=== PATIENT | female | born 1970 | race Hispanic/Latino ===

== ENCOUNTER 2017-05-26 08:50 | Emergency (ER) | payer BC ==
[2017-05-26 09:07] VITALS: RESP 19
--- NOTE | 2017-05-26 09:35 | ED PDOC ---
HPI: CCC, URI, Sore Throat Chief Complaint (Provider): cough <Kael Lara III - Last Filed: 05/26/17 11:03> History Per: Patient History/Exam Limitations: no limitations Have you had recent travel within the past 21 days to any of the following countries: [place], [place], [place] or [place]?: No Onset/Duration Of Symptoms: Days Current Symptoms Are (Timing): Still Present Location Of Pain: denies: Ear(s), Throat, Diffuse Myalgias, Headache Sick Contacts (Context): None Associated Symptoms: Sore Throat, Cough, Nasal Congestion. denies: Fever, Chills, Sputum, Neck Pain, Sinus Drainage, Myalgias, Nausea, Vomiting, Diarrhea Ear Symptoms: Bilateral: None <Adam Yuen - Last Filed: 05/26/17 11:08> Time Seen by Provider: 05/26/17 09:28 Chief Complaint (Nursing): Cough, Cold, Congestion Additional Complaint(s): CC: cough HPI: 47 y/o woman w/ no pmh presents to ED with cough. The patient reports 2 months of non-productive, non-bloody cough. The patient had previously gone to an urgent care center 1 month ago and was prescribed a z-pack which she took without resolution. The patient also has been using albuterol inhalers Q4h without relief, last taken 2 days ago. The patient reports associated mild sinus pain, rhinorrhea, mild SOB, and chest congestion but denies fever, nausea , vomiting, diarrhea, dysuria, recent travel, or sick contacts. The patient denies any allergies, smoking, alcohol, and drug use. ROS: 12 points assessed and negative unless otherwise reported in HPI allergies: NKDA PMH: none PMD: none PSH: none SOC: denies smoking, alcohol, and drugs (Adam Yuen) Supervising Attending Note - Attestation: I have fully participated in the care of the patient.: Yes I have reviewed all pertinent clinical information, including history, physical exam and plan: Yes <Kael Lara III - Last Filed: 05/26/17 11:03> <Adam Yuen - Last Filed: 05/26/17 11:08> - Notes: Notes:: pt w chronic cough, hx URI and bronchitis in (Kael Lara III) Past Medical History <Kael Lara III - Last Filed: 05/26/17 11:03> Reviewed: Historical Data, Nursing Documentation, Vital Signs - Medical History PMH: No Chronic Diseases - Family History Family History: States: Unknown Family Hx <Adam Yuen - Last Filed: 05/26/17 11:08> Vital Signs: Last Vital Signs Temp 97.9 F 05/26/17 09:05 Pulse 72 05/26/17 09:05 Resp 19 05/26/17 09:05 BP 102/59 L 05/26/17 09:05 Pulse Ox 96 05/26/17 10:43 - Home Medications Home Medications: Ambulatory Orders Medication Instructions Recorded Albuterol HFA [Ventolin HFA 90 1 - 2 puff IH Q4 PRN #1 inhaler 05/26/17 mcg/actuation (8 g)] Benzonatate [Tessalon Perles] 100 mg PO TID PRN #20 sgl 05/26/17 Fexofenadine/Pseudoephedrine 1 each PO BID #20 tab.er.12h 05/26/17 [Luz-D 12 Hour Tablet] Fluticasone Nasal [Flonase] 1 actuation NS DAILY #1 spr 05/26/17 Promethazine/Codeine 5 ml PO TID #100 ml 05/26/17 [Codeine/Promethazine 10 MG/5 Ml-6.25 MG/5 Ml] - Allergies Allergies/Adverse Reactions: Allergies Allergy/AdvReac Type Severity Reaction Status Date / Time No Known Allergies Allergy Verified 05/26/17 09:07 Curb-65 Severity Score - CURB-65 Severity Score Confusion: No Respiratory Rate greater than/equal to 30: No Systolic BP <90 or Diastolic BP less than/equal 60mmHg: No Age >64: No Curb-65 Score: 0 Percentage 30-day mortality: 0.6% <Adam Yuen - Last Filed: 05/26/17 11:08> Review of Systems ROS Statement: Except As Marked, All Systems Reviewed And Found Negative Constitutional: Negative for: Fever, Chills, Sweats ENT: Positive for: Nose Discharge, Nose Congestion. Negative for: Ear Pain, Nose Pain, Throat Swelling Cardiovascular: Negative for: Chest Pain, Palpitations, Light Headedness Respiratory: Positive for: Cough, Shortness of Breath, Pleuritic Pain. Negative for: Hemoptysis, Sputum, Wheezing Gastrointestinal: Negative for: Nausea, Vomiting, Abdominal Pain, Diarrhea Genitourinary Female: Negative for: Dysuria Skin: Negative for: Rash Neurological: Negative for: Weakness, Confusion, Altered Mental Status, Headache , Dizziness <Adam Yuen - Last Filed: 05/26/17 11:08> Physical Exam - Reviewed Nursing Documentation Reviewed: Yes Vital Signs Reviewed: Yes - Physical Exam Appears: Positive for: No Acute Distress Head Exam: Positive for: ATRAUMATIC, NORMAL INSPECTION, NORMOCEPHALIC Skin: Positive for: Normal Color, Warm, Dry Eye Exam: Positive for: Normal appearance ENT: Positive for: TM Is/Are (clear), Nasal Congestion, Other (erythematous nasal turbinates) Neck: Positive for: Normal, Painless ROM, Supple Cardiovascular/Chest: Positive for: Regular Rate, Rhythm, Chest Non Tender. Negative for: Bradycardia, Tachycardia Respiratory: Positive for: Normal Breath Sounds. Negative for: Accessory Muscle Use, Crackles, Rales, Rhonchi, Wheezing, Respiratory Distress Pulses-Carotid (L): 2+ Pulses-Carotid (R): 2+ Pulses-Dorsalis Pedis (L): 2+ Pulses-Dorsalis Pedis (R): 2+ Pulses-Post. Tibialis (L): 2+ Pulses-Post. Tibialis (R): 2+ Pulses-Radial (L): 2+ Pulses-Radial (R): 2+ Gastrointestinal/Abdominal: Positive for: Normal Exam, Bowel Sounds, Soft. 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 and pulmonary function testing for further evaluation of chronic cough Dispo: DC home, given script for luz, tessalon perle, albuterol inhaler, flonase spary, and phenergen w/ codeine syrup (Adam Yuen) Disposition <Kael Lara III - Last Filed: 05/26/17 11:03> - Patient ED Disposition Is Patient to be Admitted: No Discussed With Dr.: Kael Lara III - Disposition Disposition: Routine/Home Disposition Time: 11:08 - POA Present On Arrival: None <Adam Yuen - Last Filed: 05/26/17 11:08> - Clinical Impression Clinical Impression: Cough - Disposition Referrals: [facility] [Provider Group] [facility] [Provider Group] Condition: IMPROVED Additional Instructions: Please take medications as prescribed. Follow up with PMD in 2-3 days. Inquire about beef specialist referral and pulmonary function testing for further evaluation of chronic cough Prescriptions: Albuterol HFA [Ventolin HFA 90 mcg/actuation (8 g)] 1 - 2 puff IH Q4 PRN #1 inhaler PRN Reason: Shortness Of Breath Benzonatate [Tessalon Perles] 100 mg PO TID PRN #20 sgl PRN Reason: Cough Fexofenadine/Pseudoephedrine [Luz-D 12 Hour Tablet] 1 each PO BID #20 tab.er.12h Fluticasone Nasal [Flonase] 1 actuation NS DAILY #1 spr Promethazine/Codeine [Codeine/Promethazine 10 MG/5 Ml-6.25 MG/5 Ml] 5 ml PO TID #100 ml Forms: [employer] (Chinese)
--- NOTE | 2017-05-26 10:11 | RAD ---
HISTORY: persistent cough COMPARISON: No prior. TECHNIQUE: Chest PA and lateral FINDINGS: LUNGS: No active pulmonary disease. PLEURA: No significant pleural effusion identified. No pneumothorax apparent. CARDIOVASCULAR: Normal. OSSEOUS STRUCTURES: No significant abnormalities. VISUALIZED UPPER ABDOMEN: Normal. OTHER FINDINGS: None. IMPRESSION: No active disease.
[2017-05-26] MEDS ORDERED: Promethazine 6.25 MG/5 ML CUP PO STA (10:35)
[2017-05-26] MEDS ORDERED: Promethazine 6.25 MG/5 ML CUP ONE (10:47)
[2017-05-26 11:07] VITALS: BP 120/78; PULSE 78; TEMP 97.6
[2017-05-26 11:09] VITALS: O2SAT 96
== END 2017-05-26 11:07 | disposition home or self-care (01) ==
LOC: H.ER 08:50
DX: R05 Cough (principal)